=== PATIENT | female | born 1995 | race Caucasian/White ===

== ENCOUNTER 2017-08-13 | Emergency (ER) | payer BC ==
[~2017-08-13] VITALS: Ht 165.1 cm; Wt 71.9 kg
[2017-08-13 00:05] VITALS: TEMP 36.8; Ht 165.1 cm; Wt 71.9 kg
[2017-08-13] MEDS ORDERED: ONDANSETRON 4MG OD TAB PO ONE (00:15)
--- NOTE | 2017-08-13 00:28 | EMERGENCY ROOM VISIT NOTE ---
History Report prepared by Shima: Louis Alcantar Under the Supervision of: Dr. Oralia Duke D.O. First contact with patient: 00:07 Chief Complaint: HEAD INJURY (MINOR) Stated Complaint: HEADACHE,VOMITING History of Present Illness The patient is a 21 year old female who presents to the Emergency Room with complaints of constant nausea and intermittent vomiting beginning 7 days ago. The patient states she hit her head 7 days ago, and she was diagnosed with a concussion 4 days ago. She reports since then, she was nauseous and vomiting. The patient notes she tripped in the bathroom and hit her head on the tile floor. She states she sat down and experienced a headache and dizziness. The patient reports she went to sleep and vomited the following morning. The patient states she went to the [facility]. She notes for the following three days she still felt dizzy and nauseous. The patient states today she felt really nauseous and dizzy. She reports these are the symptoms that always proceed her vomiting episodes. She states when she vomits, she vomits the food and drink she consumed earlier in the day. The patient notes she went to the football game and denies alcohol consumption. She states she was eating normally and drinking enough fluids. The patient reports she will occasionally lose balance. She notes her last vomiting episode was 2 hours ago. The patient denies cough, cold, diarrhea, abdominal pain, leg cramping, leg swelling, and the chance of being . She notes she has a history of a concussion around four years ago. Source of History: patient Onset: 7 days ago Position: other (global) Quality: other (nausea and vomiting) Timing: constant, intermittent Associated Symptoms: No cough, No abdominal pain, No diarrhea Note: Associated symptoms: dizziness, occasionally lose balance Denies: cold, leg cramping, leg swelling, and the chance of being Review of Systems See HPI for pertinent positives & negatives. A total of 10 systems reviewed and were otherwise negative. Past Medical & Surgical Medical Problems: (1) Concussion Family History Patient reports no known family medical history. Social History Smoking Status: Never Smoker Housing Status: lives with roommate Occupation Status: student Physical Exam Vital Signs Date Time Temp Pulse Resp B/P (MAP) Pulse Ox O2 Delivery O2 Flow Rate FiO2 08/13/17 02:01 78 18 118/78 97 08/13/17 00:18 18 08/13/17 00:05 36.8 105 18 138/94 98 Room Air Physical Exam HEENT: Head - normocephalic and atraumatic. Pupils are equal, round, and reactive to light. Extraocular eye muscles are intact and sclera are anicteric. Ears - bilaterally patent canals with noninjected tympanic membranes and no evidence of hemotympanum. Nose - moist nasal mucosa without discharge. Mouth - moist buccal mucosa. Oropharynx is nonerythematous and there is no tonsillar exudate or edema noted. Neck: Supple; no JVD, nuchal rigidity, cervical lymphadenopathy. Heart: Regular rate and rhythm. There is a normal S1 and S2 with no murmurs, clicks, or gallops appreciated. Lungs: Clear to auscultation bilaterally with no wheezes, rales, or rhonchi. Abdomen: Soft, completely nontender, nondistended, with good bowel sounds. There are no palpable pulsatile masses or hepatosplenomegaly. There is no guarding, rigidity, or rebound noted. Extremities: No evidence of cyanosis, clubbing, or edema. There are easily palpable peripheral pulses. Neuro:The patient is awake and alert, oriented to day, time, and place. Muscle strength is 5/5 in all 4 extremities. The patient has equal head of loss prevention strength and equal pedal push and pull. There are no cerebellar signs. Medical Decision & Procedures ER Provider Diagnostic Interpretation: CT results as stated below per my review and radiologist interpretation: CT HEAD: Punctate hyperdensities of indeterminate significance (for example right frontal region image 2-22). No mass effect or midline shift. No skull fracture. Radiologist: Lian Gomez MD Study ready at 0036 and initial results transmitted at 0122. Medications Administered Medications (Trade) Dose Ordered Sig/Jeff Route Start Time Stop Time Status Last Admin Dose Admin Ondansetron HCl (Zofran Odt) 4 mg ONE ONCE PO 08/13/17 00:15 08/13/17 00:16 DC 08/13/17 00:22 4 MG Ondansetron HCl (ZOFRAN ODT 4MG Home Pack) 1 homepack UD ONCE PO 08/13/17 02:00 08/13/17 02:01 DC 08/13/17 01:56 1 HOMEPACK Procedure 0015: Ordered Ondansetron HCl 4mg PO 0200: Ordered Ondansetron HCl 1 homepack PO ED Course 0009: Past medical records reviewed. The patient was evaluated in room B07. A complete history and physical exam was performed. 0015: Ordered Ondansetron HCl 4mg PO. The patient went for CT scan of the brain. 0139: Upon reevaluation, the patient is feeling better. I discussed findings and results with her. She verbalized agreement of the treatment plan. The patient will discharged home when she receives her medication. 0200: Ordered Ondansetron HCl 1 homepack PO Medical Decision The patient is a 21 year old female who presents to the ED with nausea and vomiting. Differential diagnosis includes concussion, closed head injury, intracranial trauma, post-concussion syndrome. This is a 21-year-old female patient who suffered a head injury 7 days ago. Approximately 4 days ago, the patient was diagnosed with a concussion. However, the patient became concerned today when she developed increasing nausea, dizziness and then began to vomit. CT scan of the brain was essentially negative for an acute traumatic injury. There were hyperdensities noted in the frontal region of an unknown significance. I explained this to the patient and encouraged her to have close follow-up and repeat CAT scanning. I spent some time talking to the patient about postconcussive syndrome and outpatient instructions. Impression Primary Impression: Concussion Scribe Attestation The scribe's documentation has been prepared under my direction and personally reviewed by me in its entirety. I confirm that the note above accurately reflects all work, treatment, procedures, and medical decision making performed by me. Departure Information Dispostion Home / Self-Care Referrals No Doctor, Assigned (PCP) Forms HOME CARE DOCUMENTATION FORM, IMPORTANT VISIT INFORMATION Patient Instructions ED Concussion, My [facility] Additional Instructions Rest. Take plenty of clear liquids Limit screen time. Follow up at [facility] for concussion follow up. Avoid spors or other potential for head injury Problem Qualifiers Primary Impression: Concussion Encounter type: initial encounter Loss of consciousness presence/duration: without LOC Qualified Codes: S06.0X0A - Concussion without loss of consciousness, initial encounter
[2017-08-13] MEDS ORDERED: ONDANSETRON HOME PACK 4MG OD TAB PO ONE (02:00)
[2017-08-13 02:01] VITALS: BP 118/78; PULSE 78; O2SAT 97
[2017-08-13] MEDS ORDERED: BCPILLS PO (05:43)
[2017-08-13] MEDS ORDERED: NORG1TAB26 PO (05:44)
--- NOTE | 2017-08-13 06:11 | DIAGNOSTIC IMAGING REPORT ---
HEAD WITHOUT CONTRAST (CT) CLINICAL HISTORY: 21 years-old Female with eval for trauma. Acute headache with vomiting. TECHNIQUE: Multiple axial CT images of the head were obtained without contrast. A dose lowering technique was utilized adhering to the principles of ALARA. CT DOSE: 537.48 mGy.cm COMPARISON: None. FINDINGS: No acute intracranial hemorrhage, midline shift, mass, large territorial ischemia or abnormal extra-axial collection. Minimal areas of increased attenuation involving the frontal lobes as described on the stat rad report are likely artifactual. No hemorrhage identified. Note is made of cavum septum pellucidum. The calvarium is intact. The paranasal sinuses, mastoid air cells, and middle ear cavities are clear. IMPRESSION: No acute intracranial abnormality. The above report was generated using voice recognition software. It may contain grammatical, syntax or spelling errors. Electronically signed by: Raghu Marrero M.D. 08/13/2017 6:09 AM Dictated Date/Time: 08/13/2017 6:06 AM
== END 2017-08-13 02:02 | disposition home or self-care (01) ==
LOC: C.EDB 00:01
DX: S06.0X0A Concussion without loss of consciousness, initial encounter (principal); R11.2 Nausea with vomiting, unspecified; R51 Headache; R42 Dizziness and giddiness; X58.XXXA Exposure to other specified factors, initial encounter